=== PATIENT | male | born 1945 | race Two or more races ===

== ENCOUNTER 2019-04-16 20:31 | Inpatient (IN) | payer OTHER ==
[~2019-04-16] VITALS: Ht 170.2 cm; Wt 81.2 kg
--- NOTE | 2019-04-16 20:51 | NUR ---
PT TO ED FOR EVAL OF ABD PAIN SINCE. AM. PT STAES HE ATTEMPTED TO HAVE SEVERAL BM'S IN AM BUT ONLY HAS SMALL BOWEL MOVEMENTS. CONTINUES TO HAVE ABD PAIN. HERNIA NOTED TO RUQ . PT HAS SURGICAL INCISON TO ABD FROM RECENT BREE IN [place] IN DECEMBER 2018. STATES HE HAD BILATERAL HERNIAS ON EACH SIDE OF INCISION BUT THE HERNIA ON L SIDE REDUCED ON ITS ON. RUQ HERNIA STILL PRESENT. PT WEARS COMPRESSION BELT TO DECREASE PAIN @ HERNIA SITE. PT AWAKE AND ALERT. BREATHING EVEN UNLABORED. NO DISTRESS. PLACED ON CM. WAITING MSE.
[2019-04-16 21:35] LABS: BASOPHIL % 0.5 % (0-2); PLATELET COUNT 246 x10^3mcL (130-400); RED CELL DISTRIBUTION WIDTH 14.8 % (11.5-14.5)
--- NOTE | 2019-04-16 21:38 | NUR ---
PT O2 SAT AT 90% RA. O2 APPLIED AT 2L NC. MD TREVINO MADE AWARE
--- NOTE | 2019-04-16 21:38 | NUR ---
PT DENIES HAVING COPD OR ANY "BREATHING PROBLEMS"
--- NOTE | 2019-04-16 21:39 | NUR ---
O2 SATURATION IMPROVED TO 96%
[2019-04-16 21:45] LABS: CALCIUM 7.9 mg/dL (8.5-10.1); CARBON DIOXIDE 27.4 mmol/L (21-32); CHLORIDE SERUM 110 mmol/L (98-107); CREATININE SERUM 1.2 mg/dL (0.7-1.3); GLUCOSE SERUM 103 mg/dL (74-106); POTASSIUM SERUM 3.7 mmol/L (3.5-5.1); SODIUM SERUM 146 mmol/L (136-145)
[2019-04-16 21:50] LABS: ALKALINE PHOSPHATASE 105 U/L (46-116); ALT/SGPT 25 U/L (16-63); AST/SGOT 20 U/L (15-37); BILIRUBIN TOTAL 0.4 mg/dL (0.20-1.00); LIPASE 116 IU/L (73-393)
[2019-04-16 21:51] LABS: ALBUMIN 3.2 g/dL (3.4-5.0)
--- NOTE | 2019-04-17 00:29 | NUR ---
REPORT GIVEN TO ROSELYN CARDENAS
--- NOTE | 2019-04-17 00:40 | NUR ---
RECEIVED PT FROM ED [facility]IA [employer], CAME IN DUE TO ABDOMINAL PAIN. AAOX4. DENIES HEADACHE/DIZZINESS. ABLE TO FOLLOW COMMANDS. NO SOB NOTED, LUNG SOUNDS CTA. DENIES CHEST PAIN/PRESSURE. DENIES ABDOMINAL PAIN/NAUSEA/VOMITING. ABDOMEN IS DISTENDED BUT SOFT. BOWEL SOUNDS ACTIVE. ABLE TO PASS GAS. LAST BM=04/16/19. VOIDS. W/ 3 OPEN WOUNDS DRAINING W/ SCANT AMOUNT OF YELLOW DRAINAGE, NO ODOR NOTED. W/ OPEN WOUND ON THE TIP OF THE RIGHT THUMB, NO DRAINAGE NOTRED. W/ SCAR ON THE MID-ABDOMEN. IV SITE ON THE RAC IS PATENT AND INTACT. SIDE RAILS UPX2. CALL LIGHT ON REACH. WILL ENDORSE TO PRIMARY NURSE ROSELYN FOR CONTINUITY OF CARE
[2019-04-17 00:54] VITALS: BP 165/80
[2019-04-17 00:58] VITALS: Ht 170.2 cm; Wt 81.2 kg
[2019-04-17 01:00] LABS: T3 TOTAL 1.06 ng/mL
[2019-04-17 01:03] LABS: FREE T4 1.07 ng/dL (0.76-1.46); FREE THYROXINE INDEX 2.6 ug/dL (1.4-4.5); T4(THYROXINE) 7.7 ug/dL (4.7-13.3)
--- NOTE | 2019-04-17 05:09 | NUR ---
PT REMAINED ASLEEP. NO DISTRESS NOTED. NO S/S OF PAIN AT THIS TIME. BED IN LOWEST POSITION,CALL LIGHT WITHIN REACH. WILL CONTINUE TO MONITOR.
--- NOTE | 2019-04-17 05:17 | NUR ---
SPOKE TO DR ROSALES REGARDING PT'S WOUNDS AT [facility]. WAITING FOR NEW ORDER.
[2019-04-17 06:14] VITALS: BP 143/59
[2019-04-17 06:25] LABS: BASOPHIL % 0.4 % (0-2); PLATELET COUNT 208 x10^3mcL (130-400)
[2019-04-17 06:39] LABS: RED CELL DISTRIBUTION WIDTH 15.5 % (11.5-14.5)
[2019-04-17 06:43] LABS: CARBON DIOXIDE 25.6 mmol/L (21-32); CHLORIDE SERUM 112 mmol/L (98-107); CREATININE SERUM 1.2 mg/dL (0.7-1.3); GLUCOSE SERUM 83 mg/dL (74-106); MAGNESIUM 1.7 mg/dL (1.8-2.4); PHOSPHOROUS 3.4 mg/dL (2.5-4.9); POTASSIUM SERUM 3.7 mmol/L (3.5-5.1); SODIUM SERUM 145 mmol/L (136-145)
--- NOTE | 2019-04-17 07:22 | NUR ---
CARE ENDORSED TO DAY NURSE HYACINTH.
--- NOTE | 2019-04-17 08:54 | NUR ---
Patient received in bed. Dutch speaking. Alert and oriented x 4. Respiration even and unlabored. No signs of distress noted. Patient informed of small bowel study in the morning. Will continue to monitor. Call light within reach.
--- NOTE | 2019-04-17 09:01 | NUR ---
DOWN FOR SBGT. PATIENT WAS HEPLOCKED AND WILL AWAIT ARRIVAL BACK TOT FLOOR POST PROCEDURE.
--- NOTE | 2019-04-17 09:01 | NUR ---
PATIENT RECEIVED PATIENT ALERT AND ORIENTED TIMES FOUR AND IV INTACT AND PATIENT DENIES PAIN OR SOB OR DIZZINESS OR NAUSEA AT THIS TIME. PATIENT HAS A FOUL BREATH THAT SMELLS OF STOOL. PATIENT HAS BEEN NPO AND IS FOR SBFT THIS AM. PATIENT HAS HX OF HTN, CHOLESECTOMY. HE HAS BEEN DIAGNOSED OF SMALL BOWEL OBSTRUCTION. PATIENT IS SPAINISH ONLY AND HAS VITALS AT THIS TIME AT 97.2, 83, 18, 143/59, 98% ON ROOM AIR. PATIENT AHS NOTED LASB OF MAG AT 1.7, CA AT 7.0, H AHD OF 11.9/37, AND PATIENT HAS CHLORIDE AT 12 AND AIC AT 6.3. PATIETNAHS IF TO THE THE RIGHT AC AND HAS BEEN WITH SCORES TO THE HANDS AND TREATED WITH BACERTRACIN INDICATED. WILL CONTINUED TO MONITOR.
--- NOTE | 2019-04-17 11:15 | NUR ---
PATIENT RETURNED TO BEDSIDE AND FAMILY IS WAITINGIN THE ROOM. MINDY ROMAN FOR THE RESULTS OF THE SBFT. NO COMPLAINTS OF PAIN AT THIS ITME. CONTINUED NPO ORDERED.
[2019-04-17 12:19] VITALS: BP 123/74
[2019-04-17 13:35] VITALS: BP 129/78
--- NOTE | 2019-04-17 14:11 | NUR ---
PATIENT IS RESTING QUIETLY ATT HIS JUAN DAVID. WILL CONTNUE TO MONITOR.
--- NOTE | 2019-04-17 17:12 | NUR ---
CALLED THE RESIDENT WITHT HE RESULTS OF THE SMALL BOWEL FOLLOW THROUGH. PATIENT HAS BEEN NPO AND DENIES PAIN AT THIST ANGELA. CONTINUED ON IV FLUIDS. PER THE RESIDENT WILL FOLLOW UP WITH THE GI RECOMENDATION AND POSSIBLE CLEAR LIQUID DIET FOR DINNER.
--- NOTE | 2019-04-17 17:13 | NUR ---
PATIENT CURRENTLY SLEEPING IN BED. NO C/O PAIN. AT BEDSIDE. WILL CONTINUE TO MONITOR.
[2019-04-17 17:26] VITALS: BP 148/74
--- NOTE | 2019-04-17 19:25 | NUR ---
RECEIVED PT RESTING IN BED, NO ACUTE DISTRESS NOTED. FAMILY AT BEDSIDE. DENIES TERRY/DIZZINESS, MEDSURG PT, DENIES CP. PULSES PALPABLE BILAT, REPORTS HX OF TINGLING IN FEET. NONE AT THIS TIME. RESP EVEN AND UNLABORED ON 2LNC, DENIES USING O2 AT HOME, DENIES SOB. WEANED DOWN TO 1LNC, PT S/P SM BOWEL FOLLOW THRU, (-) FOR SBO, PT TOLERATING FULL LIQUID DIET WELL, PT REPORTING LIQUID STOOL TODAY, D/T CONTRAST PASSING. BOWEL SOUNDS ACTIVE X4 QUAD. REPORTS LAST REG BM= 04/16, FORMED. AMBULATORY, DENIES HX OF FALLS. PT WITH SCATTERED DRY SCABS BUE, DENIES PAIN. PT WITH OLD CHOLECYSTECOMY SCAR TO MID ABD, SLIGHT TENDERNESS WITH PALPATION. IV SITE TO THE RAC, PATENT, NO REDNESS, SWELLING OR PAIN NOTED. ALL COMFORT AND SAFETY MEASURES PROVIDED FOR, CALL LIGHT WITHIN REACH, BED IN LOWEST POSITION, WILL CONTINUE TO MONITOR.
[2019-04-17 21:36] VITALS: BP 148/64
--- NOTE | 2019-04-18 01:46 | NUR ---
RECIEVED PT FROM JARAD RN, PT IS A/OX4 WITH NO COMPLAINTS OF TERRY OR DIZZINESS, PT DENIES CHEST PAIN OR PRESSURE AT THIS TIME, HEART SOUNDS S1 S2, PERIPHERAL PULSES PALPABLE THROUGHOUT, NO EDEMA NOTED AT THIS TIME, PT LUNG SOUNDS CTA, NO SOB AT THIS TIME ON RA, BOWEL SOUNDS POSITVE, ABD SOFT, ROUND, NONTENDER. PT ROM FULL, PT DENIES PAIN AT THIS TIME, IV TO THE RAC INFUSING NS @ 100ML/HOUR, SITE CDI WITH NO REDNESS OR SWELLING, SAFETY PRECAUTIONS IN PLACE, ALL PATIENT NEEDS ATTENDED TO WILL CONTINUE TO MONITOR
--- NOTE | 2019-04-18 03:38 | NUR ---
PT RESTING IN BED AT THIS TIME, PT DENIES SOB OR PAIN AT THIS TIME, ALL PT NEEDS ATTENDED TO AT THIS TIME, SAFETY PRECAUTIONS IN PLACE, WILL CONTINUE TO MONITOR
--- NOTE | 2019-04-18 05:26 | NUR ---
PT RESTED AND HAD NO ACUTE DISTRESS THROUGH SHIFT SINCE I HAVE TAKEN OVER CARE OF PATIENT, PT DENIED SOB THROUGH SHIFT, PT HAS DENIED ANY PAIN DURING TIME OF CARE, PT AMBULATED TO RESTROOM ONCE WITH A BALANCED AND STEADY GAITT, PT BLOOD PRESSURE WAS ELEVATED IN MORNING, ADMINISTERED PRN HYDRALIZINE PO PER ORDER, SAFETY PRECAUTIONS IN PLACE WILL CONTINUE TO MONITOR AND ENDORSE CARE
--- NOTE | 2019-04-18 05:30 | NUR ---
PT MAGNESIUM LEVEL 1.7, DR ROSALES NOTIFIED, SAID WAIT UNTIL AFTER MORNING MAGNESIUM LAB DRAW TO SEE IF COVERAGE NEEDED
[2019-04-18 05:51] VITALS: BP 172/71
[2019-04-18 07:30] LABS: CALCIUM 7.4 mg/dL (8.5-10.1); CARBON DIOXIDE 23.5 mmol/L (21-32); CHLORIDE SERUM 109 mmol/L (98-107); MAGNESIUM 1.6 mg/dL (1.8-2.4); PHOSPHOROUS 2.9 mg/dL (2.5-4.9); POTASSIUM SERUM 3.7 mmol/L (3.5-5.1); SODIUM SERUM 142 mmol/L (136-145)
[2019-04-18 07:47] LABS: GLUCOSE SERUM 51 mg/dL (74-106)
[2019-04-18 07:51] LABS: BASOPHIL % 0.4 % (0-2); PLATELET COUNT 214 x10^3mcL (130-400)
[2019-04-18 07:54] LABS: RED CELL DISTRIBUTION WIDTH 14.8 % (11.5-14.5)
[2019-04-18 08:25] VITALS: BP 152/90
--- NOTE | 2019-04-18 08:48 | NUR ---
PATIENT RECEIVED AWAKE AND STATES MINIMAL PAIN AT THIS TIME. HE HAS BEEN OOB AND TOLERATED THE FULL LIQUID DIET. PATIENT HAS BEEN WITH VITALS AT THIS TIEM AT98.1,. 88, 18, 172/71. 98%. DR SANABRIA AWARE OF THE VITALS AND THE ELEVATED BP. HE RECEIVED SOME HYDROLAZINE AND WILL [place] IDNIATED. THE BLOOD SUGAR AT 500AM AT 51 BUT ASYMPTOMATIC AND EATTING AT THIS TIME. HE HAS A MAGNESIUM OF 1.6 AND WAS AT 1.7 YESTERDAY. PATIENT AHS NOTED CA AT 7.4, AND SHE AHS NEGATIVE CHEST XRAY AND WITH HX OF HTN, MULTIPLE ABDOMINAL SURGERIES AND HAD A BREE IN [place] IN 2019. HIS SBFT WAS NEGATIE. AND PATIENT NOTED WITH SOME ASCITES, FATTY LIVER AND SOME STONES HE HAS A A DEFECT TO THE ABDOMINAL WALL THAT SEEMS TO BE A SOURCE OF HIS ON AND OFF PAIN TO THE ABDOMEN. PATIENT HS DENIED NAUSEA AND THE ABDOMEN IS DISTENDED BUT NOTED NOT RIGID OR TENDER TO THETOUCH. WILL CONTNUE TO MONITOR INDICATED.
[2019-04-18] MEDS ORDERED: NOR5 PO (09:54)
[2019-04-18] MEDS ORDERED: ZESTRIL20 MG PO (09:54)
[2019-04-18 10:42] VITALS: BP 152/90
--- NOTE | 2019-04-18 12:16 | NUR ---
PATIENT APPEARS STABLE. DISCHARGE TEACHING PROVIDED FOR THE PATIENT IN [place] AND [place]. FAMILY AT THE BEDSIDE. PATIENT DRESSED IN STREET CLOTHES. GAVE HANDOUTS ON DIVERTICULOSIS, DIVERTICULITIS, AND HYPERTENSION IN [place].
--- NOTE | 2019-04-18 12:36 | NUR ---
PATIENT DISCHARGED IN STABLE CONDITION. NO SIGNS OF DISTRESS NOTED. AND FRIENDS FOLLOWED PATIENT TO FRONT LOBBY EXIT.
== END 2019-04-18 12:35 | disposition home or self-care (01) | DRG 389 ==
LOC: ED 20:31 → MU 23:50
PROVIDERS: Emergency Medicine; ADMIT Internal Medicine
DX: K56.609 Unspecified intestinal obstruction, unspecified as to partial versus complete obstruction (principal); R18.8 Other ascites; I10 Essential (primary) hypertension; K76.0 Fatty (change of) liver, not elsewhere classified; N21.0 Calculus in bladder; E83.51 Hypocalcemia; K57.30 Diverticulosis of large intestine without perforation or abscess without bleeding; Z68.25 Body mass index [BMI] 25.0-25.9, adult
CPT/HCPCS: 83880; 84439; G0378; J2270; J2405; J3475; J3490; J7030; Q0092; Q9967